=== PATIENT | female | born 1970 | race Caucasian/White ===

== ENCOUNTER → 2022-09-09 | Outpatient (CLI) | payer OTHER ==
[~2022-09-09] MED LIST: ACYC1TAB PO; AMIT50TA PO; AMLO1TAB22 PO; BUPR10DI3; CYCL-707 PO; DICL1GEL3 TOP; ERGO500029 PO; FLUT1BLS8 IH; HYDR-3490 PO; HYDR-3713; IPRAT-ALBUT; LANS30CA93 PO; LEVO50TA5 PO; LEXA1TAB; LIDO1PAD TOP; MESA1000 PR; METF500T13; METF750T36; MORP-69 PO; POTA10CA60; PROC10TA5; RIZA10TA58 PO; TAMO20TA8 PO; TOPA50TA8; TOPI-254; TREL1AER; VALA1TAB5
[2022-09-09 14:10] LABS: BASO # 0.1 10^3/uL (0.0-0.2); BASO % 1.8 % (0.0-1.0); EOS # 0.3 10^3/uL (0.0-0.5); EOS % 4.2 % (0.0-3.0); HEMATOCRIT 46.5 % (36.0-47.0); HEMOGLOBIN 15.2 g/dl (12.0-15.5); LYMPH # 1.7 10^3/uL (1.5-5.0); LYMPH % 27.6 % (24.0-44.0); MEAN CORPUSCULAR HEMOGLOBIN 31.8 pg (27.0-33.0); MEAN CORPUSCULAR HGB CONC 32.7 g/dl (32.0-36.5); MEAN CORPUSCULAR VOLUME 97.3 fl (80.0-96.0); MONO # 0.5 10^3/uL (0.0-0.8); MONO % 7.9 % (2.0-8.0); NEUTROPHILS # 3.6 10^3/uL (1.5-8.5); PLATELET COUNT, AUTOMATED 221 10^3/uL (150-450); RED BLOOD COUNT 4.78 10^6/uL (4.00-5.40); WHITE BLOOD COUNT 6.2 10^3/uL (4.0-10.0)
[2022-09-09 14:20] LABS: C REACTIVE PROTEIN QUANTITATIV < 0.40 MG/DL (<1.0)
[2022-09-09 14:22] LABS: IMMUNOGLOBULIN A 178.2 MG/DL (40-350); IMMUNOGLOBULIN G 756 MG/DL (650-1600); IMMUNOGLOBULIN M 118.3 MG/DL (50-300)
[2022-09-09 14:23] LABS: ALKALINE PHOSPHATASE 52 U/L (46-116); ALT/SGPT 36 U/L (7.0-40); AST/SGOT 15 U/L (<34); BILIRUBIN,TOTAL 0.3 MG/DL (0.3-1.2); BLOOD UREA NITROGEN 29 MG/DL (9-23); CALCIUM LEVEL 9.6 MG/DL (8.5-10.1); CARBON DIOXIDE LEVEL 32 MMOL/L (20-31); CHLORIDE LEVEL 100 MMOL/L (98-107); GLOMERULAR FILTRATION RATE 50.6 (>51); GLUCOSE, FASTING 105 MG/DL (60-100); SODIUM LEVEL 138 MMOL/L (136-145); TOTAL PROTEIN 6.8 G/DL (5.7-8.2)
[2022-09-09 14:24] LABS: IMMUNOGLOBULIN E 227.8 IU/ML (0-378)
[2022-09-09 14:54] LABS: HIV 1&2 SCREEN NEGATIVE (NEGATIVE)
[2022-09-12 14:09] LABS: % CD8 Pos Lymph 27.2 % (12.0-35.5); %CD4 Pos Lymphs 37.6 % (30.8-58.5); ABS Basophils 0.1 x10E3/uL (0.0-0.2); ABS Eosinophils 0.3 x10E3/uL (0.0-0.4); ABS Lymphs 1.6 x10E3/uL (0.7-3.1); ABS Monocytes 0.5 x10E3/uL (0.1-0.9); ABS Neutophils 3.6 x10E3/uL (1.4-7.0); ALPHA 1 ANTITRYPSIN 179 mg/dL (101-187); Abs CD4 Helper 602 /uL (359-1519); Abs CD8 Suppres 435 /uL (109-897); CD4/CD8 Ratio 1.38 (0.92-3.72); Eosinophils 4 % (Not Estab.); HCT 44.4 % (34.0-46.6); HGB 15.1 g/dL (11.1-15.9); IgG SERUM (part of Subclasses) 777 mg/dL (586-1602); IgG Subclass 1 347 mg/dL (248-810); IgG Subclass 2 278 mg/dL (130-555); IgG Subclass 3 53 mg/dL (15-102); IgG Subclass 4 42 mg/dL (2-96); Immature Grans 0 % (Not Estab.); Lymphocytes 27 % (Not Estab.); MCH 32.1 pg (26.6-33.0); MCV 94 fL (79-97); Monocytes 8 % (Not Estab.); Neutrophils 59 % (Not Estab.); Platelets 203 x10E3/uL (150-450); RBC 4.71 x10E6/uL (3.77-5.28); RDW 12.5 % (11.7-15.4)
== END ==
LOC: M PLALAB 09:08
PROVIDERS: ATTEND Internal Medicine Infectious Disease
DX: B02.9 Zoster without complications (principal); R06.02 Shortness of breath

== ENCOUNTER 2022-10-31 21:32 | Emergency (ER) | payer OTHER ==
[~2022-10-31] VITALS: Ht 172.7 cm; Wt 95.6 kg
[2022-10-31 21:32] VITALS: TEMP 98.4
[~2022-10-31 21:32] MED LIST changes: +DICL100G10 TOP; -DICL1GEL3 TOP
[2022-10-31 22:12] LABS: BASO # 0.1 10^3/uL (0.0-0.2); BASO % 1.2 % (0.0-1.0); EOS # 0.3 10^3/uL (0.0-0.5); EOS % 2.6 % (0.0-3.0); HEMATOCRIT 45.3 % (36.0-47.0); HEMOGLOBIN 15.7 g/dl (12.0-15.5); LYMPH # 2.9 10^3/uL (1.5-5.0); LYMPH % 29.1 % (24.0-44.0); MEAN CORPUSCULAR HGB CONC 34.7 g/dl (32.0-36.5); MEAN CORPUSCULAR VOLUME 92.3 fl (80.0-96.0); MONO # 0.6 10^3/uL (0.0-0.8); MONO % 6.3 % (2.0-8.0); NEUTROPHILS # 6.1 10^3/uL (1.5-8.5); NEUTROPHILS % 60.6 % (36.0-66.0); PLATELET COUNT, AUTOMATED 245 10^3/uL (150-450); RED BLOOD COUNT 4.91 10^6/uL (4.00-5.40); WHITE BLOOD COUNT 10.1 10^3/uL (4.0-10.0)
[2022-10-31 22:42] LABS: BLOOD UREA NITROGEN 16 MG/DL (9-23); CALCIUM LEVEL 9.8 MG/DL (8.5-10.1); CARBON DIOXIDE LEVEL 27 MMOL/L (20-31); CHLORIDE LEVEL 101 MMOL/L (98-107); CPK CREATINE PHOSPHOKINASE 81 U/L (34-145); CREATININE FOR GFR 1.22 MG/DL (0.55-1.30); GLOMERULAR FILTRATION RATE 49.7 (>51); GLUCOSE, FASTING 92 MG/DL (60-100); MB/CK RELATIVE INDEX 1.23 (< OR =4); POTASSIUM SERUM 3.3 MMOL/L (3.5-5.1); SODIUM LEVEL 140 MMOL/L (136-145)
[2022-10-31 22:44] LABS: INR 0.91; PARTIAL THROMBOPLASTIN TIME 26.4 SECONDS (24.8-34.2); PROTHROMBIN TIME 12.4 SECONDS (12.5-14.5)
[2022-11-01] MEDS ORDERED: POTASSIUM CHLORIDE 10MEQ SR TABLET PO ONE (01:05)
[2022-11-01] MEDS ORDERED: NS 500 ML IV ONE (01:20)
[2022-11-01] MEDS ORDERED: KETOROLAC 30 MG/ML 1ML VIAL IV ONE (01:20)
[2022-11-01 03:47] VITALS: O2SAT 95
[2022-11-01 03:50] VITALS: BP 100/57
== END 2022-11-01 04:01 | disposition home or self-care (01) ==
LOC: M ED 21:32
DX: E11.9 Type 2 diabetes mellitus without complications (principal); I10 Essential (primary) hypertension; E78.5 Hyperlipidemia, unspecified; G43.909 Migraine, unspecified, not intractable, without status migrainosus; J45.909 Unspecified asthma, uncomplicated; N18.9 Chronic kidney disease, unspecified; F32.A Depression, unspecified; Z88.1 Allergy status to other antibiotic agents; Z88.8 Allergy status to other drugs, medicaments and biological substances; Z79.4 Long term (current) use of insulin; Z79.899 Other long term (current) drug therapy
CPT/HCPCS: 71045; 80048; 82550; 82553; 83735; 84484; 85025; 85610; 85730; 93005; 96361; 96374; 99284; J1885

== ENCOUNTER → 2023-03-10 | Outpatient (CLI) | payer OTHER ==
[~2023-03-10] MED LIST changes: +TOPI-21; -TOPI-254
== END ==
LOC: M SLEEP HO 11:05
PROVIDERS: ATTEND Internal Medicine Critical Care Medicine
DX: G47.33 Obstructive sleep apnea (adult) (pediatric) (principal)